=== PATIENT | female | born 1970 | race Caucasian/White ===

== ENCOUNTER 2023-03-22 13:23 | Outpatient (REF) | payer OTHER, SELFPAY ==
--- NOTE | ~2023-03-22 | US_ITS ---
EXAMINATION: MM DIAGNOSTIC DIGITAL BREAST TOMOSYNTHESIS, LEFT US BREAST LIMITED, LEFT MAMMOGRAPHY: CLINICAL INFORMATION: 53-year-old female, initial mammogram 03/12/[address] [facility], who requested callback for asymmetry left breast one view only MLO projection superior aspect. [place] [facility] additional complaint of pea-sized palpable focus of concern in left lateral periareolar region. COMPARISON: Mammography: 03/12/2023 from [facility] 09/29/2020, 02/14/2017, and 01/11/2016. TECHNIQUE: Digital breast tomosynthesis is performed in both the following views: Full-field 3-D left mediolateral view, 3-D spot compression left MLO views x3, and CC views x2. FINDINGS: The breasts are heterogeneously dense, which may obscure small masses (ACR BI-RADS breast composition Category c). The previously seen 1 view asymmetry completely dissipates upon diagnostic views on the left MLO projection, consistent with overlap of normal dense overlying tissues. No persistent abnormality is evident. Review of the prior mammogram 03/11/2023 demonstrates no suspicious abnormalities. Specifically, there are no suspicious masses, suspicious grouped calcifications, or areas of architectural distortion in either breast upon review. The parenchymal pattern is stable from prior exams. ULTRASOUND: CLINICAL INFORMATION: Palpable focus of abnormality lateral periareolar region pea-sized COMPARISON: None TECHNIQUE: Targeted sonographic evaluation was performed using a high frequency linear transducer. Attention was paid specifically to the palpable focus in the periareolar region. Selected archived documentation. FINDINGS: LEFT BREAST: There is a mixture of fatty and fibroglandular tissue. No suspicious mass is seen. There is no pathologic acoustic shadowing. No edema in the soft tissue planes. No sonographic correlate to the focus of palpable concern. US/US breast LT limited mamm only IMPRESSION: There are no findings suspicious for malignancy in the left breast. There is no sonographic or mammographic correlate to the palpable abnormality in the periareolar region. Recommend clinical management. Decision to biopsy a palpable focus of concern without imaging correlate must be determined on a clinical basis. Otherwise, recommend resuming routine annual screening mammography. OVERALL ASSESSMENT: Mammography: BI-RADS 1 - Negative Ultrasound: BI-RADS 1 - Negative RECOMMENDATION: 1. Patient should be managed based on the clinical impression. Decision to proceed with biopsy should be based on clinical grounds and degree of clinical concern. 2. Otherwise, routine annual screening mammography. This patient's information was entered into a reminder system with a target due date for their next mammogram.
== END 2023-03-22 13:24 | disposition home or self-care (01) ==
LOC: HO.MAMMO 13:23
PROVIDERS: PCP Physician Assistant; Referring Provider Physician Assistant; Visit Provider Physician Assistant
DX: R92.8 Other abnormal and inconclusive findings on diagnostic imaging of breast (principal)
CPT/HCPCS: 76642; 77061; 77065

== ENCOUNTER → 2023-03-22 14:30 | Outpatient (BNV) | payer OTHER, SELFPAY | PROVIDERS: PCP Physician Assistant; Visit Provider Radiology Diagnostic Radiology | DX: R92.8 Other abnormal and inconclusive findings on diagnostic imaging of breast (principal) | CPT/HCPCS: 76642; 77061; 77065 ==